=== PATIENT | female | born 1945 | race Caucasian/White ===

== ENCOUNTER 2016-11-27 22:40 | Emergency (ER) | payer MEDICARE, MEDICAID ==
[~2016-11-27] VITALS: Ht 160 cm; Wt 65.9 kg
[2016-11-27 22:41] VITALS: BP 173/98
[2016-11-27] MEDS ORDERED: METO25TA35 PO (22:53)
[2016-11-27] MEDS ORDERED: HYDROcodone/APAP 5/325 TABLET ONE (23:44)
[2016-11-28] MEDS ORDERED: HYDROcodone/APAP 5/325 TABLET PO ONE
[2016-11-29] MEDS ORDERED: ESOM20CA PO (13:35)
[2016-11-29] MEDS ORDERED: ROPI1TAB PO (13:35)
[2016-11-29] MEDS ORDERED: ATOR20TA9 PO (13:35)
[2016-11-29] MEDS ORDERED: FLUO20CA19 PO (13:35)
== END 2016-11-27 23:53 | disposition home or self-care (01) ==
LOC: ED 23:47
DX: S60.211A Contusion of right wrist, initial encounter (principal); I10 Essential (primary) hypertension; Z86.73 Personal history of transient ischemic attack (TIA), and cerebral infarction without residual deficits; Z90.710 Acquired absence of both cervix and uterus; Z87.891 Personal history of nicotine dependence; Z90.49 Acquired absence of other specified parts of digestive tract; W22.8XXA Striking against or struck by other objects, initial encounter; Y93.89 Activity, other specified; Y92.89 Other specified places as the place of occurrence of the external cause; Y99.9 Unspecified external cause status
CPT/HCPCS: 99284

== ENCOUNTER 2016-12-13 16:10 | Emergency (ER) | payer MEDICARE, MEDICAID ==
[~2016-12-13] VITALS: Ht 160 cm; Wt 66.2 kg
[~2016-12-13 16:10] MED LIST: ATOR20TA9 PO; ESOM20CA PO; FLUO20CA19 PO; METO25TA35 PO; ROPI1TAB PO
[2016-12-13 16:16] VITALS: BP 144/90
== END 2016-12-13 17:10 | disposition home or self-care (01) ==
LOC: ED 16:46
DX: Z76.0 Encounter for issue of repeat prescription (principal); I10 Essential (primary) hypertension; Z88.1 Allergy status to other antibiotic agents; Z88.0 Allergy status to penicillin; Z90.49 Acquired absence of other specified parts of digestive tract; Z90.710 Acquired absence of both cervix and uterus; Z86.73 Personal history of transient ischemic attack (TIA), and cerebral infarction without residual deficits
CPT/HCPCS: 99283